=== PATIENT | male | born 1970 | race Caucasian/White ===

== ENCOUNTER 2017-05-27 21:29 | Emergency (ER) | payer OTHER ==
[~2017-05-27] VITALS: Ht 175.3 cm; Wt 113.4 kg
--- NOTE | 2017-05-27 23:00 | NUR ---
TO BED 3 A 46 YO MALE PT C/O 2ND FINGER RIGHT HAND LAC 3 HOURS [employer]ULT[employer]. NAD NOTED. VSS. COMFORT MEASURE RENDERED. INITIAL WOUND CARE DONE.
--- NOTE | 2017-05-27 23:40 | NUR ---
Dr Palencia at bedside to suture lac.
--- NOTE | 2017-05-27 23:55 | NUR ---
Dressing intact, clean and dry. Patient discharged to home in stable condition. Written and verbal after care instructions given. Patient verbalizes understanding of instruction. Patient is ambulatory with steady gait, no further complaints.
[2017-05-27 23:56] VITALS: BP 140/65
== END 2017-05-28 00:03 | disposition home or self-care (01) ==
LOC: ER 21:30
DX: S61.211A Laceration without foreign body of left index finger without damage to nail, initial encounter (principal); E11.9 Type 2 diabetes mellitus without complications; W45.8XXA Other foreign body or object entering through skin, initial encounter; Y93.89 Activity, other specified; Y92.89 Other specified places as the place of occurrence of the external cause; Y99.8 Other external cause status
CPT/HCPCS: 12001; 99283; A4606; A6402; Z7610

== ENCOUNTER 2021-02-23 02:37 | Emergency (ER) | payer BC, OTHER ==
[~2021-02-23] VITALS: Ht 180.3 cm; Wt 106.6 kg
--- NOTE | 2021-02-23 02:40 | NUR ---
PT C/O EPIGASTRIC PAIN WITH N/V/D SINCE 1999. ATE DINNER AT 1800. BS CHECK AT HOME WAS 125. CONNECTED TO INSULIN PUMP. PT A/OX4. ON ROOM AIR; TOLERATING WELL. PT AMBULATORY
[2021-02-23] MEDS ORDERED: IV NS 0.9% 1,000 ML BAG IV ONE (03:00)
[2021-02-23] MEDS ORDERED: ONDANSETRON HCL/PF 4 MG/2 ML VIAL IVP ONE (03:00)
[2021-02-23] MEDS ORDERED: MORPHINE SULFATE INJ 2 MG/ML DISP.SYRIN IV ONE (03:00)
--- NOTE | 2021-02-23 03:00 | NUR ---
PT TAKEN TO RADIOLOGY FOR CT Addendum: 02/23/21 at 0418 by OSORIO [id number]
--- NOTE | 2021-02-23 03:00 | NUR ---
ADDENDUM: Intravenous End Time Documentation: Normal saline 1 liter (IV-WO) : start time: 0300 AM ; end time: 0400 AM IV site: Right Hand, PIV # 20 Port # 1
[2021-02-23] MEDS ORDERED: ONDANSETRON HCL/PF 4 MG/2 ML VIAL ONE (03:04)
[2021-02-23] MEDS ORDERED: MORPHINE SULFATE INJ 2 MG/ML DISP.SYRIN ONE (03:05)
--- NOTE | 2021-02-23 03:25 | NUR ---
IV R HAND #20G; NS PT C/O 6/10 EPIGASTRIC PAIN.
[2021-02-23 03:27] LABS: BASOPHILS # (AUTO) 0.1 K/uL (0.0-0.2); BASOPHILS % (AUTO) 0.7 % (0.0-2.0); EOSINOPHILS % (AUTO) 4.4 % (0.0-6.0); HEMATOCRIT 37 % (39-51); HEMOGLOBIN 12.3 g/dL (13.5-17.5); LYMPHOCYTES # (AUTO) 0.8 K/uL (0.8-4.8); LYMPHOCYTES % (AUTO) 7.6 % (20.0-44.0); MEAN CORPUSCULAR HGB CONC 33 g/dl (31.0-36.0); MEAN CORPUSCULAR VOLUME 85 fL (80-96); MONOCYTES # (AUTO) 0.7 K/uL (0.1-1.30); MONOCYTES % (AUTO) 5.9 % (2.0-12.0); NEUTROPHILS # (AUTO) 9.1 K/uL (1.8-8.9); NEUTROPHILS % (AUTO) 81.4 % (43.0-81.0); PLATELET COUNT (AUTO) 182 K/uL (150-450); RED BLOOD CELL COUNT(AUTO) 4.32 MIL/uL (4.5-6.0); WHITE BLOOD COUNT (AUTO) 11.2 K/uL (4.3-11.0)
--- NOTE | 2021-02-23 03:40 | NUR ---
URINE SAMPLE COLLECTED AND SENT TO LAB
--- NOTE | 2021-02-23 03:42 | NUR ---
PT IN ER ROOM 10
[2021-02-23 03:54] LABS: BILIRUBIN,URINE Negative (NEGATIVE); COLOR,URINE YELLOW (YELLOW); LEUKOCYTE ESTERASE ,URINE Negative (NEGATIVE); NITRITE, URINE Negative (NEGATIVE); PH,URINE 5.5 (5.0-8.0); PROTEIN,URINE Negative (NEGATIVE); UGLUCOSE 100 MG/DL mg/dL (NEGATIVE); UROBILINOGEN,URINE 0.2 EU/dL (0.2)
[2021-02-23 04:09] LABS: RBC,URINE 0-2 /HPF (0-2)
[2021-02-23 04:10] LABS: BACTERIA,URINE Rare /HPF (None Seen); MUCUS,URINE Few /LPF (None Seen); SQUAMOUS EPITHELIAL CELL,UR Few /HPF (None Seen)
[2021-02-23 04:16] LABS: CALCIUM, SERUM 9.2 mg/dL (8.5-10.1); CARBON DIOXIDE 25 mmol/L (21-32); CHLORIDE 101 mmol/L (98-107); CREATININE 1.2 mg/dL (0.6-1.3); GLUCOSE 233 mg/dL (74-106); POTASSIUM 4.2 mmol/L (3.5-5.1); SODIUM SERUM 140 mmol/L (136-145); UREA NITROGEN, BLOOD 19 mg/dL (7-18)
[2021-02-23 04:21] LABS: ALANINE AMINOTRANSFERASE 114 U/L (12-78); ALBUMIN 3.4 g/dL (3.4-5.0); ALKALINE PHOSPHATASE 166 U/L (46-116); ASPARTATE AMINOTRANSFERASE 160 U/L (15-37); BILIRUBIN,DIRECT 0.4 mg/dL (0.0-0.2); BILIRUBIN,TOTAL 0.8 mg/dL (0.2-1.0); LIPASE 76 U/L (73-393); TOTAL PROTEIN, SERUM 6.6 g/dL (6.4-8.2)
[2021-02-23] MEDS ORDERED: AMOX/CLAVULANATE 875 MG TABLET PO ONE (05:00)
[2021-02-23] MEDS ORDERED: TRAM50TA2 PO (05:05)
[2021-02-23] MEDS ORDERED: AMOX-430 PO (05:05)
[2021-02-23] MEDS ORDERED: AMOX/CLAVULANATE 875 MG TABLET ONE (05:05)
--- NOTE | 2021-02-23 05:15 | NUR ---
Patient discharged to home in stable condition. Written and verbal after care instructions and prescriptions given. Patient verbalizes understanding of instruction. pt ambulatory. VSS
[2021-02-23 05:20] VITALS: BP 121/59
== END 2021-02-23 05:15 | disposition home or self-care (01) ==
LOC: ER 02:41
DX: K52.9 Noninfective gastroenteritis and colitis, unspecified (principal); R74.01 Elevation of levels of liver transaminase levels; I10 Essential (primary) hypertension; E78.5 Hyperlipidemia, unspecified; E11.9 Type 2 diabetes mellitus without complications; E03.9 Hypothyroidism, unspecified
CPT/HCPCS: 36415; 74176; 80048; 80076; 81001; 83690; 84484; 85025; 93005; 96361; 96374; 96375; 99285; J2270; J2405